=== PATIENT | male | born 1955 | race Caucasian/White ===

== ENCOUNTER 2020-02-18 22:56 | Inpatient (IN) ==
[2020-02-18] MEDS ORDERED: ONDANSETRON INJ 2 MG/ML 2 ML VIAL ONE (23:09)
[2020-02-18] MEDS ORDERED: SODIUM CHLORIDE 0.9% 1000ML 1,000 ML IV SCH (23:45)
[2020-02-18] MEDS ORDERED: ONDANSETRON INJ 2 MG/ML 2 ML VIAL IV STA (23:48)
[2020-02-18] MEDS ORDERED: SODIUM CHLORIDE 0.9% 1000ML 250 ML IV ONE (23:54)
[2020-02-19 00:34] LABS: Hematocrit (blood only) 38.3 % (42-52); Hemoglobin 12.8 g/dL (14.0-18.0); Immature Granulocytes # (auto) 0.03 K/uL (0.00-0.02); Immature Granulocytes % (auto) 0.3 %; Lymphocytes # (auto) 0.67 K/uL (1.2-3.4); Lymphocytes % (auto) 7.4 %; Mean Corpuscular Hemoglobin 28.3 pg (25-34); Mean Corpuscular Hgb Conc 33.4 g/dL (32-36); Mean Corpuscular Volume 84.5 fL (80-100); Mean Platelet Volume 8.7 fL (7.4-10.4); Monocytes # (auto) 0.14 K/uL (0.11-0.59); Monocytes % (auto) 1.5 %; Neutrophils # (auto) 8.22 K/uL (1.4-6.5); Neutrophils % (auto) 90.8 %; Platelet Count 209 K/uL (130-400); RDW Standard Deviation 42.9 fL (36.4-46.3); Red Blood Count 4.53 M/uL (4.7-6.1); White Blood Count 9.06 K/uL (4.8-10.8)
[2020-02-19 00:54] LABS: Alanine Aminotransferase 30 U/L (12-78); Albumin Globulin Ratio 0.9 (0.9-2); Albumin Level 3.1 gm/dl (3.4-5.0); Alkaline Phosphatase 108 U/L (45-117); Aspartate Aminotransferase 23 U/L (15-37); BUN Creatinine Ratio 17.2 (10-20); Bilirubin,Total 0.4 mg/dl (0.2-1); Blood Urea Nitrogen 28 mg/dl (7-18); Calcium 8.4 mg/dl (8.5-10.1); Carbon Dioxide 25 mmol/L (21-32); Chloride 111 mmol/L (98-107); Est GFR (African American) 50.8; Est GFR (Non-African American) 43.9; Globulin 3.3 gm/dl (2.5-4.0); Glucose 156 mg/dl (70-99); Lipase 98 U/L (73-393); Potassium 4.9 mmol/L (3.5-5.1); Sodium 142 mmol/L (136-145); Total Protein 6.4 gm/dl (6.4-8.2)
--- NOTE | 2020-02-19 02:11 | Emergency Department Note ---
History of Present Illness General Chief complaint: Abdominal Pain Stated complaint: abdominal pain Time Seen by Provider: 02/18/20 23:03 Source: patient Mode of arrival: EMS Limitations: no limitations History of Present Illness Provider complaint: Abdominal pain, nausea Maximum Pain Intensity: 5 This patient is a 64-year-old male who presents emergency department with complaints of diffuse abdominal pain, nausea. Patient states he is traveling from [place] where he was evaluated today with a CT angiogram and bronchoscopy. He states he is a lung transplant patient from 1-1/2 years ago. Patient states recently his spirometry has been going down. They requested to see him in clinic. Patient had his friend drive him back [facility]. Patient was driving himself from [place] back to [place]. Patient developed a sudden and severe diffuse abdominal pain and nausea. He pulled over at a truck stop and attempted to vomit but did not. He stated he just did not feel right and called the ambulance from there. He states after his lung transplant he was in the ICU for 6 weeks. He did have a "severe ileus" at that time. This does feel similar. Patient denies any recent fevers, chills, chest pain. He states he was tested 2 days ago at the [facility] for COVID and was negative. Home Medications Home Medications Medication Instructions Recorded Confirmed Type atorvastatin 10 mg PO HS 02/18/20 02/18/20 History levothyroxine 125 mcg PO QAM 02/18/20 02/18/20 History magnesium oxide 400 mg PO BID 02/18/20 02/18/20 History multivitamin [[place]] 1 tab PO DAILY 02/18/20 02/18/20 History mycophenolate mofetil 250 mg PO BID 02/18/20 02/19/20 History pantoprazole 40 mg PO DAILY 02/18/20 02/19/20 History prednisone 5 mg PO QAM 02/18/20 02/18/20 History tacrolimus 0.5 mg PO AMHS 02/18/20 02/19/20 History valganciclovir 450 mg PO QAM 02/18/20 02/18/20 History Lactobacillus acidophilus 1 tab PO BID 02/19/20 02/19/20 History calcium carbonate 500 mg PO BID 02/19/20 02/19/20 History folic acid 1 mg PO DAILY 02/19/20 02/19/20 History sulfamethoxazole-trimethoprim 1 tab PO 3XWK 02/19/20 02/19/20 History Allergies Allergy/AdvReac Type Severity Reaction Status Date / Time gluten Allergy Severe Gastrointestinal Verified 02/19/20 00:04 Upset heparin Allergy Severe Tachycardia Verified 02/19/20 00:04 Past Med/Surg History Medical History (Updated 02/19/20 @ 06:51 by Citlaly Barba MD) Dyslipidemia Hypothyroidism Lung transplant status (Acute) Surgical History (Updated 02/19/20 @ 02:16 by Citlaly Barba MD) Status post cholecystectomy Social History Preferred Language: Irish Beliefs That Will Affect Care: None Current Living Situation: Spouse and Family Current Living Situation Comment: and 10 year old daughter Other Information That Helps Us Care for You: No Feels Safe at Home: Yes Safety Concerns: Feels Safe At This Time Smoking Status: Never smoker Do You Dip or Chew Tobacco: No ; Second Hand Exposure: No ; Tobacco Cessation Education Requested by Patient: No Hx Alcohol Use: No Hx Substance Use: No Review of Systems See HPI for pertinent positives & negatives. and A total of 10 systems reviewed and were otherwise negative Physical Exam Vital Signs Vital Signs - 24 hr 02/18/20 23:04 02/18/20 23:26 02/19/20 00:29 Temperature 36.4 C L Temperature Source Oral Pulse Rate 111 H Pulse Rate [Apical] Respiratory Rate 24 Respiratory Effort / Characteristics Labored Respiratory Depth Shallow Shallow Blood Pressure 106/70 Blood Pressure [Right Arm] Blood Pressure Mean 82 Blood Pressure Mean [Right Arm] Pulse Oximetry 94 Oxygen Delivery Method Room Air Room Air Sepsis Recent Fever Within 48 Hours No Sepsis New/Unexplained Change in Mental Status No Sepsis Action Taken by Nursing Physician Notified 02/19/20 01:30 Temperature Temperature Source Pulse Rate Pulse Rate [Apical] 93 H Respiratory Rate 20 Respiratory Effort / Characteristics Respiratory Depth Blood Pressure Blood Pressure [Right Arm] 97/65 L Blood Pressure Mean Blood Pressure Mean [Right Arm] 75 Pulse Oximetry 93 Oxygen Delivery Method Room Air Sepsis Recent Fever Within 48 Hours Sepsis New/Unexplained Change in Mental Status Sepsis Action Taken by Nursing Vital signs reviewed. General: Generally well-appearing 64-year-old male, in no significant distress. HEENT: No scleral icterus, PERRLA, neck supple. Atraumatic. Cardiovascular: Regular rate and rhythm, no extra sounds. Pulmonary: Clear to auscultation bilaterally, normal work of breathing. Abdomen: Soft, mild diffuse abdominal tenderness, distended and positive tympany to percussion, hyperactive positive bowel sounds. Musculoskeletal: Atraumatic, no peripheral edema. Neurologic: Patient awake alert and oriented x 3 Skin: Warm, dry, no rash Course Administered Medications Dextrose/Sodium Chloride (D5w And Nss) 1,000 mls @ 125 mls/hr IV .Q8H KOFFI Stop: 03/20/20 03:12 Last Admin: 02/19/20 03:46 Dose: 125 mls/hr Documented by: [id number] Discontinued Medications Sodium Chloride (Nss 1000ml) 1,000 mls @ 100 mls/hr IV .Q10H KOFFI Stop: 02/19/20 09:44 Last Admin: 02/19/20 00:33 Dose: 100 mls/hr Documented by: [id number] Sodium Chloride (Nss 1000ml) 250 mls @ 999 mls/hr IV .Q16M ONE Stop: 02/19/20 00:09 Last Infusion: 02/19/20 01:03 Dose: 0 mls/hr Documented by: [id number] Admin: 02/19/20 00:33 Dose: 999 mls/hr Documented by: [id number] Ondansetron HCl (Zofran) Confirm Administered Dose 4 mg .ROUTE .STK-MED ONE Stop: 02/18/20 23:10 Last Admin: 02/18/20 23:00 Dose: 4 mg Documented by: [id number] Ondansetron HCl (Zofran) 4 mg IV NOW STA Stop: 02/18/20 23:49 Last Admin: 02/19/20 00:29 Dose: Not Given Documented by: [id number] Medical Decision Making Differential Diagnosis Differential diagnosis: Etiologies such as biliary colic, cholecystitis, hepatitis, pancreatitis, cardiac disease, pancreatitis, gastritis, peptic ulcer disease, appendicitis, cystitis, diverticulitis, mesenteric ischemia, inflammatory bowel disease, ileus, bowel obstruction, testicular torsion, aortic pathology, shingles, as well as others were considered. Medical Records Attestation: I reviewed the patient's medical records. Home Medications Current Medication List: was personally reviewed by me Laboratory Data Attestation: I reviewed the patient's lab results. Result diagrams: 02/19/20 00:18 02/19/20 00:18 Lab Results 02/19/20 02/19/20 02/19/20 Range/Units 00:18 00:18 02:05 WBC 9.06 (4.8-10.8) K/uL RBC 4.53 L (4.7-6.1) M/uL Hgb 12.8 L (14.0-18.0) g/dL Hct 38.3 L (42-52) % MCV 84.5 (80-100) fL MCH 28.3 (25-34) pg MCHC 33.4 (32-36) g/dL RDW Std Deviation 42.9 (36.4-46.3) fL RDW Coeff of Astrid 14.0 (11.5-14.5) % Plt Count 209 (130-400) K/uL MPV 8.7 (7.4-10.4) fL Immature Gran % (Auto) 0.3 % Neut % (Auto) 90.8 % Lymph % (Auto) 7.4 % [place] % (Auto) 1.5 % Eos % (Auto) 0.0 % Baso % (Auto) 0.0 % Neut # (Auto) 8.22 H (1.4-6.5) K/uL Lymph # (Auto) 0.67 L (1.2-3.4) K/uL [place] # (Auto) 0.14 (0.11-0.59) K/uL Eos # (Auto) 0.00 (0-0.5) K/uL Baso # (Auto) 0.00 (0-0.2) K/uL Immature Gran # (Auto) 0.03 H (0.00-0.02) K/uL Sodium 142 (136-145) mmol/L Potassium 4.9 (3.5-5.1) mmol/L Chloride 111 H (98-107) mmol/L Carbon Dioxide 25 (21-32) mmol/L Anion Gap 6.0 (3-11) BUN 28 H (7-18) mg/dl Creatinine 1.63 H (0.6-1.4) mg/dl Est Cr Clr Drug Dosing Not Reportable Est GFR ( Amer) 50.8 Est GFR (Non-Af Amer) 43.9 BUN/Creatinine Ratio 17.2 (10-20) Glucose 156 H (70-99) mg/dl Calcium 8.4 L (8.5-10.1) mg/dl Total Bilirubin 0.4 (0.2-1) mg/dl AST 23 (15-37) U/L ALT 30 (12-78) U/L Alkaline Phosphatase 108 (45-117) U/L Total Protein 6.4 (6.4-8.2) gm/dl Albumin 3.1 L (3.4-5.0) gm/dl Globulin 3.3 (2.5-4.0) gm/dl Albumin/Globulin Ratio 0.9 (0.9-2) Lipase 98 (73-393) U/L Urine Color Yellow Urine Appearance Clear (Clear) Urine pH 5.0 (4.5-7.5) Ur Specific [place] 1.025 (1.000-1.030) Urine Protein Negative (Negative) Urine Glucose (UA) Negative (Negative) Urine Ketones Negative (Negative) Urine Blood Negative (Negative) Urine Nitrite Negative (Negative) Urine Bilirubin Negative (Negative) Urine Urobilinogen Negative (Negative) Ur Leukocyte Esterase Negative (Negative) Imaging Data Radiologist's Impression: CT abdomen and pelvis without contrast: There is scattered linear atelectasis and scarring in the lung bases. The liver is unremarkable. The gallbladder has been removed. No biliary duct dilatation is seen. The pancreas, spleen, adrenal glands and kidneys are within normal limits. There is residual contrast within the renal collecting system and urinary bladder, nondilated. Correlate with recent IV contrast administration. The appendix is normal there is a moderate amount of stool throughout the right colon which is nondilated measuring up to 5 cm. There are multiple scattered gas fluid levels in nondilated fluid filled small bowel in the midabdomen consistent with ileus or gastroenteritis. No acute focal inflammatory changes are seen. Skeletal structures show mild degenerative changes in the spine. No fracture or bone lesion is seen. Incidental note is made of a fat-containing left inguinal hernia measuring 2.3 cm in diameter. Radiologist: Aashish Chacko MD ECG Data Attestation: I personally reviewed and interpreted this ECG as follows: Indication: + abdominal pain Rate (beats per minute): 99 Rhythm: + normal sinus ECG Intervals/blocks: + Normal QRS ECG [place]: + Normal ECG ST segments: + Nonspecific ST abnormalities ECG Findings: no PACs and no PVCs Blood Pressure Blood Pressure Findings: Normal blood pressure Blood Pressure Disposition: did not require urgent referral MDM Narrative This patient was evaluated and appeared to be in no significant distress. IV access was obtained and laboratory work was drawn. An order for cardiac monitoring was placed and the patient was found to be in a sinus tachycardia at 111 bpm. Patient was hydrated with normal saline solution, given IV Zofran. CT imaging of the abdomen pelvis was performed and reveals evidence of an adynamic ileus. Patient's laboratory work is fairly reassuring with a white blood cell count of 9.06. Patient's creatinine is 1.63 however he did receive a dose of IV contrast earlier today. Patient is afebrile and stable from the pain and nausea standpoint. Given his multiple medical problems and immunocompromise state, the hospitalist service has been contacted for evaluation and further management. Patient is aware of the plan and agrees. Impression & Plan Lung transplant status, Adynamic ileus Discharge Plan Visit Data *Final* Discharge Date/Time: 02/19/20 02:51 Chief Complaint: Abdominal Pain Stated Complaint: abdominal pain ED Provider: Citlaly Barba Discharge Problem: Lung transplant status, Adynamic ileus Patient Disposition: Admitted As Inpatient Discharge Instructions Interventions: ED Discharge Assessment Last Done: 02/19/20 02:51
[2020-02-19 02:26] LABS: Appearance Urine Clear (Clear); Bilirubin Urine Negative (Negative); Blood Urine Negative (Negative); Color Urine Yellow; Glucose Urine UA Negative (Negative); Ketones Urine Negative (Negative); Leukocyte Esterase Urine Negative (Negative); Nitrite Urine Negative (Negative); Protein Urine Negative (Negative); Specific Gravity Urine 1.025 (1.000-1.030); Urobilinogen Urine Negative (Negative)
[2020-02-19] MEDS ORDERED: ONDANSETRON INJ 2 MG/ML 2 ML VIAL IV PRN (03:13)
[2020-02-19] MEDS ORDERED: MoRPHine SULFATE 2 MG/ML CARP IV PRN (03:13)
[2020-02-19] MEDS ORDERED: ACETAMINOPHEN 325 MG TAB PO PRN (03:13)
[2020-02-19] MEDS: D5W AND NSS 1,000 ML IV SCH ×3 (03:46→19:26)
[2020-02-19] MEDS ORDERED: Nursing to Pharmacy Communication SCH (04:15)
--- NOTE | 2020-02-19 04:31 | History and Physical Report ---
DATE OF ADMISSION: 02/19/2020 CHIEF COMPLAINT: Abdominal pain. HISTORY OF PRESENT ILLNESS: This is a 64-year-old male with past medical history significant for interstitial lung disease, status post bilateral lung transplant one and a half years ago at the [facility], history of chronic kidney disease stage III with creatinine mostly around 1.7 as per patient, history of hyperlipidemia, hypothyroidism. He is from [facility]. He went to the [facility] for his followup appointment, says he did not go there since COVID shutdown .Followup PFTs, his PFTs are trending down and on CAT scan which showed blood supply to his left lung was 30%, 65% to the right lung, and he was advised to stay overnight and he got another CAT scan with contrast to look at his kidneys and also to look at his blood supply to the lungs.. The results of second ct scan are not back. He also had bronchoscopy . At this time, because of COVID, full anesthesia was given for his bronchoscopy, a lung biopsy was done and was discharged at 5:30 as per patient. He was not feeling well, but he tried to drive back to [place]. After [address], he was feeling nauseous and he got significant abdominal pain. He stopped in the rest area. He had few dry belching. Not feeling good, so he called EMS and was brought in here. Here his labs are all okay. His creatinine is 1.6, afebrile, hemodynamically stable. His CT scan preliminary report shows ileus. The patient says when he had the lung transplant, he was in the ICU and he had significant ileus at that time. Currently he is feeling better. He is passing gas. Abdominal pain is improving. Before the procedure at the [facility] yesterday, COVID test was done and it was negative. Denies any cough. Currently has some headache that is getting better. No blurred vision, no earache, no runny nose, no sore throat, no difficulty swallowing, no chest pain. He gets short of breath on exertion, but usually his oxygen sats are good. Normal bladder movements. No swelling in the legs, no rash. ALLERGIES: GLUTEN, HEPARIN. PAST MEDICAL HISTORY: As mentioned above. PAST SURGICAL HISTORY: Bilateral lung transplant, status post cholecystectomy. MEDICATIONS: The patient is on atorvastatin 10 mg p.o. at bedtime, calcium carbonate 500 mg p.o. b.i.d., folic acid 1 mg p.o. daily, lactobacillus 1 tablet p.o. b.i.d., levothyroxine 125 mcg p.o. daily, magnesium oxide 400 mg p.o. b.i.d., multivitamin 1 tablet daily, mycophenolate mofetil 250 mg p.o. b.i.d., Protonix 40 mg p.o. daily, prednisone 5 mg p.o. a.m., Bactrim 1 tablet 3 times a week, tacrolimus 0.5 mg p.o. a.m. and bedtime, valganciclovir 450 mg p.o. a.m. FAMILY HISTORY: Significant for father had heart disease; mother had cancer. SOCIAL HISTORY: Denies any smoking, no alcohol. REVIEW OF SYSTEMS: As per HPI. Rest of the review of systems negative. PHYSICAL EXAMINATION: GENERAL: The patient is of moderate build, not in acute distress. VITAL SIGNS: Temperature 36.4, pulse 93, respiratory rate 20, blood pressure 97/65, oxygen 93% on room air. HEENT: No pallor, no icterus. Pupils equal, round, and reactive to light. NECK: No JVD. No neck masses. CARDIOVASCULAR: S1, S2 heard, regular rate and rhythm, no murmur, no gallop. RESPIRATORY SYSTEM: Normal AP diameter. No accessory muscle use. No wheezing, no crackles. ABDOMEN: Soft, bowel sounds present. No distention, no guarding, no rigidity. CENTRAL NERVOUS SYSTEM: Cranial nerves II-XII grossly intact. Nonfocal. EXTREMITIES: No edema, no erythema. LABORATORY DATA: WBC 9.06, hemoglobin 12.8, hematocrit 38.3, platelets 209. Sodium 142, potassium 4.9, chloride 111, CO2 of 25, BUN 28, creatinine 1.63, serum glucose 156, calcium 8.4, total bilirubin 0.4, AST 23, ALT 30, alkaline phosphatase 108, lipase 98. Urinalysis negative. IMAGING DATA: CT of abdomen and pelvis, preliminary report shows ileus. EKG: Normal sinus rhythm with rate of 99, nonspecific ST abnormalities seen. ASSESSMENT AND PLAN: This is a 64-year-old male who presents with abdominal pain and nausea and CAT scan is showing ileus. 1. Ileus, mostly post procedure. He had a bronchoscopy yesterday morning . He had a similar episode after the lung transplant surgery. Currently he is improving. He is passing gas and could hear bowel sounds. We will keep him n.p.o. for now. IV fluids, IV antiemetics, IV pain meds p.r.n. KUB in the a.m. Consult surgery in the a.m. for further recommendations. 2. History of interstitial lung disease, status post bilateral lung transplant. Follow up with [facility]. Continue his tacrolimus, prednisone, and mycophenolate. 3. Hypothyroidism, we will place on IV Synthroid. 4. Hyperlipidemia. Hold statin for now. 5. Deep vein thrombosis prophylaxis, sequential compression devices. DISPOSITION: Admit to medical floor. Expect to discharge home and follow with family doctor. Level 1 full code. MTDD
--- NOTE | 2020-02-19 07:27 | CT Scan Report ---
CT SCAN OF THE ABDOMEN AND PELVIS WITHOUT CONTRAST CLINICAL HISTORY: Abdominal pain. Small bowel obstruction. History of bilateral lung transplant. COMPARISON STUDY: No previous studies for comparison. TECHNIQUE: CT scan of the abdomen and pelvis was performed from the lung bases to the proximal femurs . Images are reviewed in the axial, sagittal, and coronal planes. IV contrast was not administered fo r this examination. A dose lowering technique was utilized adhering to the principles of ALARA. CT DOSE: 744.91 mGy.cm FINDINGS: Lower chest: There are bibasilar lower lobe parenchymal lung opacities, likely atelectatic although a n infectious/inflammatory processes could appear similar. There is a trace left pleural effusion. Liver: The unenhanced liver is normal in size, contour, and attenuation. There is no intrahepatic lana iary ductal dilatation. Gallbladder: Surgically absent Spleen: Normal in size and attenuation. Pancreas: Unremarkable. Adrenal glands: Unremarkable. Kidneys: There is faint contrast enhancement, likely secondary to prior contrast administration. No f ocal masses are visualized Bowel: There are no transition zones indicate bowel obstruction. There is no evidence of acute divert iculitis. There is no evidence of acute appendicitis. There is scattered small bowel air-fluid levels . This is a nonspecific finding which could indicate an ileus or enteritis. Peritoneum: There is no intraperitoneal free air or abdominal ascites. Is a fat-containing left ingui nal hernia Vasculature: The abdominal aorta is normal in course and caliber. Adenopathy: None. Pelvic viscera: The bladder, and pelvic viscera are unremarkable. Skeletal structures: No destructive osseous lesions are seen. IMPRESSION: 1. Lower lumbar pulmonary atelectasis/scarring 2. No evidence of bowel obstruction. No evidence of free air 3. Scattered small bowel air-fluid levels. This a nonspecific finding which could indicate an ileus o r enteritis. 4. Fat-containing left inguinal hernia 5. No evidence of acute diverticulitis. No evidence of acute appendicitis. ACT 112: Negative or not required by law. Electronically signed by: Jose Hernandez M.D. 02/19/2020 7:25 AM
[2020-02-19] MEDS ORDERED: SULFAMETHOXAZOLE/TRIMETHOPRIM DS 800/160MG TAB PO SCH (08:00)
[2020-02-19] MEDS ORDERED: predniSONE 5 MG TAB PO SCH ×2 (08:00→09:00)
--- NOTE | 2020-02-19 08:23 | XRay Report ---
XR KUB/Abdomen 1 view CLINICAL HISTORY: ileus COMPARISON STUDY: CT scan dated 02/19/2020 FINDINGS: There is a nonspecific bowel gas pattern with minimally dilated gas-filled small bowel loop s. There is gas and stool present within the colon. There are no calcifications suspicious for urinar y tract calculi. There are surgical clips within the right upper quadrant. IMPRESSION: Nonspecific bowel gas pattern with minimally dilated small bowel loops measuring up to 3 5 mm in diameter ACT 112: Negative or not required by law. Electronically signed by: Jose Hernandez M.D. 02/19/2020 8:22 AM
[2020-02-19] MEDS: TACROLIMUS 0.5 MG CAP PO SCH ×2 (08:26→19:27)
[2020-02-19] MEDS: PANTOprazole 40 MG TAB PO SCH (08:26)
[2020-02-19] MEDS: MYCOPHENOLATE MOFETIL 250 MG CAP PO SCH ×2 (08:26→19:27)
[2020-02-19] MEDS ORDERED: TACROLIMUS 0.5 MG CAP PO SCH (09:00)
[2020-02-19] MEDS ORDERED: MYCOPHENOLATE MOFETIL 250 MG CAP PO SCH (09:00)
[2020-02-19] MEDS ORDERED: PANTOprazole 40 MG TAB PO SCH (09:00)
[2020-02-19] MEDS: LEVOTHYROXINE SODIUM 62.5 MCG in SYRINGE 0 ML IV SCH (09:14)
--- NOTE | 2020-02-19 10:43 | Hospitalist Progress Note ---
Date of Service February 19, 2020 Assessment & Plan Admission and Anticipated Discharge Date Admission Date: February 19, 2020 Subjective Patient admitted overnight, currently he is ambulating in the hallway, says that he feels much better. He is passing gas however did not have any bowel movement yet. Abdominal pain is much improved. He denies any nausea or vomiting currently, says that he had some yesterday. Patient is alert and oriented, answers questions appropriately. Moves extremities spontaneously without difficulty. He has positive bowel sounds. Lungs are mostly clear to auscultation bilaterally, without any wheezing or rhonchi noted. Heart sounds regular. Abdomen is soft, mostly nontender to palpation. KUB ordered for this morning. Surgery consulted by chai, evaluation pending. Contacted by Sarah, lung bariatric program coordinator at [facility], she can be reached at [phone] option 4, option 2. Per nurse, who talked to Sarah, left message that if patient would need any surgery, he would need to be transferred to [facility]. Results & Data Results & Data ([facility]) Vital Signs (Past 12 Hours) Vital Signs Temp Pulse Pulse Pulse Resp BP BP 02/19/20 03:28 36.5 C 98 H 18 123/55 L 02/19/20 02:47 94 H 24 115/65 02/19/20 01:30 93 H 20 97/65 L 02/18/20 23:04 36.4 C L 111 H 24 106/70 Pulse Ox 02/19/20 03:28 96 02/19/20 02:47 93 02/19/20 01:30 93 02/18/20 23:04 94
--- NOTE | 2020-02-19 16:01 | Surgery Consultation ---
Date of Consultation February 19, 2020 Assessment & Plan (1) Adynamic ileus: This is a 64y M with a PMH of bilateral lung transplant at [facility] in 2018, hypothyroidism, and cholecystectomy in 2019 who presented to the [facility] ED on 02/18 with complaints of abdominal pain. Workup revealed non specific small bowel dilation consistent with ileus vs enteritis. Patient reports this episode feels similar to when he developed an ileus s/p gallbladder surgery last year. Today patient reports "feeling 100% better." He is passing flatus and had a small BM today. He has been up ambulating without issues. Patient is soft and non tender to his abdomen. We have no plans for surgical intervention at this time. Patient seems clinically improved, okay from our standpoint to start clears and advance diet as tolerates. History of Present Illness Attending Physician: Ozzie Malloy MD History of Present Illness This is a 64y M with a PMH of bilateral lung transplant at [facility] in 2018, hypothyroidism, and cholecystectomy in 2019 who presents to the [facility] ED on 02/18 with complaints of abdominal pain. Of note the patient was at the [facility] yesterday undergoing routine testing regarding his lung txp, in addition to having a bronchoscopy. Patient reports he has had multiple bronchoscopy's before, but due to Covid-19 this was the first he had under general anesthesia. Patient was doing well until about 5:30pm when he was on his drive home to [place]. His friend dropped him off in OR and thought the he did not look well, but pt insisted on trying to drive home. Once patient got in his car he noted that he had developed worsening abdominal pain and nausea. He ultimately called the ambulance to take him to the hospital. In the ED patient underwent a CT a/p that revealed scattered small bowel with air fluid levels that could be consistent with an ileus vs enteritis. Patient states he has had his gallbladder out last year and developed an ileus and that this episode felt similar. He rated his pain an 8/10, associated with nausea & bloating. He denies fevers, chills, chest pain, or shortness of breath. Surgery was consulted for further e valuation. Allergies Allergy/AdvReac Type Severity Reaction Status Date / Time gluten Allergy Severe Gastrointestinal Verified 02/19/20 00:04 Upset heparin Allergy Severe Tachycardia Verified 02/19/20 00:04 Home Medications Home Medications Medication Instructions Recorded Confirmed Type atorvastatin 10 mg PO HS 02/18/20 02/18/20 History levothyroxine 125 mcg PO QAM 02/18/20 02/18/20 History magnesium oxide 400 mg PO BID 02/18/20 02/18/20 History multivitamin [[place]] 1 tab PO DAILY 02/18/20 02/18/20 History mycophenolate mofetil 250 mg PO BID 02/18/20 02/19/20 History pantoprazole 40 mg PO DAILY 02/18/20 02/19/20 History prednisone 5 mg PO QAM 02/18/20 02/18/20 History tacrolimus 0.5 mg PO AMHS 02/18/20 02/19/20 History valganciclovir 450 mg PO QAM 02/18/20 02/18/20 History Lactobacillus acidophilus 1 tab PO BID 02/19/20 02/19/20 History calcium carbonate 500 mg PO BID 02/19/20 02/19/20 History folic acid 1 mg PO DAILY 02/19/20 02/19/20 History sulfamethoxazole-trimethoprim 1 tab PO 3XWK 02/19/20 02/19/20 History Patient History Medical History Dyslipidemia Hypothyroidism Lung transplant status (Acute) Surgical History Status post cholecystectomy Social History Preferred Language: Irish Communication Ability: Effective Beliefs That Will Affect Care: None Current Living Situation: Spouse and Family Current Living Situation Comment: and 10 year old daughter Other Information That Helps Us Care for You: No Feels Safe at Home: Yes Safety Concerns: Feels Safe At This Time Smoking Status: Never smoker Do You Dip or Chew Tobacco: No ; Second Hand Exposure: No ; Tobacco Cessation Education Requested by Patient: No Hx Alcohol Use: No Hx Substance Use: No Review of Systems Constitutional: no fever and no chills Respiratory: no dyspnea Cardiovascular: no chest pain Gastrointestinal: + abdominal pain (lower abdominal pain yesterday) and + nausea; no vomiting Physical Exam Physical Exam: awake/alert Respiratory: normal respiratory effort Gastrointestinal (Abdomen): Inspection/Auscultation: abdomen not distended Percussion/Palpation: abdomen soft; abdomen nontender Results & Data Diagnostic Findings CT SCAN OF THE ABDOMEN AND PELVIS WITHOUT CONTRAST CLINICAL HISTORY: Abdominal pain. Small bowel obstruction. History of bilateral lung transplant. COMPARISON STUDY: No previous studies for comparison. TECHNIQUE: CT scan of the abdomen and pelvis was performed from the lung bases to the proximal femurs. Images are reviewed in the axial, sagittal, and coronal planes. IV contrast was not administered for this examination. A dose lowering technique was utilized adhering to the principles of ALARA. CT DOSE: 744.91 mGy.cm FINDINGS: Lower chest: There are bibasilar lower lobe parenchymal lung opacities, likely atelectatic although an infectious/inflammatory processes could appear similar. There is a trace left pleural effusion. Liver: The unenhanced liver is normal in size, contour, and attenuation. There is no intrahepatic biliary ductal dilatation. Gallbladder: Surgically absent Spleen: Normal in size and attenuation. Pancreas: Unremarkable. Adrenal glands: Unremarkable. Kidneys: There is faint contrast enhancement, likely secondary to prior contrast administration. No focal masses are visualized Bowel: There are no transition zones indicate bowel obstruction. There is no evidence of acute diverticulitis. There is no evidence of acute appendicitis. There is scattered small bowel air-fluid levels. This is a nonspecific finding which could indicate an ileus or enteritis. Peritoneum: There is no intraperitoneal free air or abdominal ascites. Is a fat- containing left inguinal hernia Vasculature: The abdominal aorta is normal in course and caliber. Adenopathy: None. Pelvic viscera: The bladder, and pelvic viscera are unremarkable. Skeletal structures: No destructive osseous lesions are seen. IMPRESSION: 1. Lower lumbar pulmonary atelectasis/scarring 2. No evidence of bowel obstruction. No evidence of free air 3. Scattered small bowel air-fluid levels. This a nonspecific finding which could indicate an ileus or enteritis. 4. Fat-containing left inguinal hernia 5. No evidence of acute diverticulitis. No evidence of acute appendicitis. ACT 112: Negative or not required by law. Electronically signed by: Jose Hernandez M.D. 02/19/2020 7:25 AM XR KUB/Abdomen 1 view CLINICAL HISTORY: ileus COMPARISON STUDY: CT scan dated 02/19/2020 FINDINGS: There is a nonspecific bowel gas pattern with minimally dilated gas- filled small bowel loops. There is gas and stool present within the colon. There are no calcifications suspicious for urinary tract calculi. There are surgical clips within the right upper quadrant. IMPRESSION: Nonspecific bowel gas pattern with minimally dilated small bowel loops measuring up to 35 mm in diameter ACT 112: Negative or not required by law. Electronically signed by: Jose Hernandez M.D. 02/19/2020 8:22 AM PG Care Time/CCT Total # of Minutes Spent Total Time Spent with Patient: Total time spent is greater than 50% in coordination of care (as documented) at patient's floor/unit and/or counseling patient: Coding Level of Care Code 43223 Inpt Consult Level 3 Diagnoses Adynamic ileus K56.0
--- NOTE | 2020-02-19 19:15 | Electrocardiogram Report ---
Test Reason : Blood Pressure : / mmHG Vent. Rate : 099 BPM Atrial Rate : 099 BPM P-R Int : 148 ms QRS Dur : 084 ms QT Int : 354 ms P-R-T Axes : 033 027 053 degrees QTc Int : 454 ms Normal sinus rhythm Nonspecific ST abnormality Abnormal ECG No previous ECGs available Confirmed by Wilmer Rivas ([id number]) on 02/19/2020 7:15:17 PM Referred By: REFERRED SELF Confirmed By:Harinder Rivas
--- NOTE | 2020-02-19 20:32 | Communication Note ---
Date of Service: February 19, 2020 Made aware by [facility] immigration coordinator of lung/transbronchial biopsy findings. Mild acute cellular rejection, grade A2 B0. research coordinator recommends Solu-Medrol 7.5 mg/kg for 3 days (approximately 650 mg/daily with patient's current weight). Hold home prednisone while on Solu-Medrol. research coordinator requesting communication with AM provider regarding discharge planning for instructions for home steroid regimen dosing. (Miss Laura Cohen RN, contact #[phone] option 4, option 2)
[2020-02-19] MEDS ORDERED: SODIUM CHLORIDE 0.45 % 1,000 ML IV ONE (20:33)
[2020-02-19] MEDS ORDERED: GLUCOSE 40% GEL 15 GM TUBE PO PRN (20:35)
[2020-02-19] MEDS ORDERED: CARBOHYDRATES FOR HYPOGLYCEMIA PO PRN (20:35)
[2020-02-19] MEDS ORDERED: GLUCOSE 10 TABS/TUBE PO PRN (20:35)
[2020-02-19] MEDS ORDERED: DEXTROSE 50% 50 ML SYRINGE IV PRN (20:35)
[2020-02-19] MEDS ORDERED: GLUCAGON FOR INJ 1 MG VIAL SQ PRN (20:35)
[2020-02-19] MEDS ORDERED: METHYLPREDNISOLONE IV SCH (21:00)
[2020-02-19] MEDS ORDERED: INSULIN GLARGINE SOLOSTAR 100 UNITS/ML 3 ML PEN SC SCH (21:00)
[2020-02-19] MEDS ORDERED: DEXTROSE 5% IV SCH (21:00)
[2020-02-19] MEDS: INSULIN ASPART 100 UNITS/ML 3 ML PEN SC SCH (23:53)
[2020-02-20 07:41] VITALS: BP 117/75; PULSE 88; TEMP 97.9; O2SAT 94
--- NOTE | 2020-02-20 08:04 | Surgery Progress Note ---
Date of Service February 20, 2020 Assessment & Plan (1) Adynamic ileus: Patient doing well from an abdominal standpoint Denies further abdominal pain or nausea Abdominal exam benign and he is passing flatus and having some BMs Tolerated clear liquids yesterday Okay to advance diet as tolerates from our standpoint Dispo pending medicine clearance Subjective Patient tolerated clear liquids yesterday. Passing gas, had a small BM this AM. No nausea/vomting or abdominal pain. Physical Exam Physical Exam: awake/alert Gastrointestinal (Abdomen): Inspection/Auscultation: abdomen not distended Percussion/Palpation: abdomen soft; abdomen nontender Results & Data Vital Signs (Past 12 Hours) Vital Signs Temp Pulse Resp BP Pulse Ox 02/20/20 07:40 36.6 C 88 16 117/75 94 02/19/20 23:51 36.5 C 87 14 112/74 97 PG Care Time/CCT Total # of Minutes Spent Total Time Spent with Patient: Total time spent is greater than 50% in coordination of care (as documented) at patient's floor/unit and/or counseling patient: Coding Level of Care Code 96873 Subseq Hosp Care Lvl 2 Diagnoses Adynamic ileus K56.0
[2020-02-20] MEDS: MYCOPHENOLATE MOFETIL 250 MG CAP PO SCH (08:17)
[2020-02-20] MEDS: PANTOprazole 40 MG TAB PO SCH (08:18)
[2020-02-20] MEDS: LEVOTHYROXINE SODIUM 62.5 MCG in SYRINGE 0 ML IV SCH (08:20)
[2020-02-20] MEDS: TACROLIMUS 0.5 MG CAP PO SCH (08:20)
[2020-02-20] MEDS: INSULIN ASPART 100 UNITS/ML 3 ML PEN SC SCH ×2 (08:21→13:43)
--- NOTE | 2020-02-20 09:40 | Hospitalist Progress Note ---
Date of Service February 20, 2020 Assessment & Plan (1) Adynamic ileus: This is a 64-year-old male who presents with abdominal pain and nausea and CAT scan is showing ileus. 1. Ileus, mostly post procedure. He had a bronchoscopy at [facility], 2 days ago. He had a similar episode after the lung transplant surgery. Currently he is improved. He is passing gas and having bowel movements. He is tolerating diet. Initially kept him n.p.o. IV fluids, IV antiemetics, IV pain meds Consulted surgery for further recommendations. No issues, patient is tolerating diet, okay to advance per surgery. 2. History of interstitial lung disease, status post bilateral lung transplant. Follow up with [facility]. Continue his tacrolimus, prednisone, and mycophenolate. Discussed in detail with nurse lung systems coordinator, biopsy came back and showed mild rejection, (please see Dr. Fonseca's note for details. ) Per their recommendation, patient received IV Solu-Medrol last night and today (02/19/20). They recommend that he receives IV Solu-Medrol also tomorrow and then they plan steroid taper. Mild hypomagnesemia. Likely due to n.p.o. status. Will replace today. If any further issues, patient should have his magnesium level checked with his primary care doctor. Creatinine mildly elevated, not sure about his baseline creatinine. Patient should follow-up with primary care doctor. Hypothyroidism, we will place on IV Synthroid. Hyperlipidemia. Hold statin for now. Deep vein thrombosis prophylaxis, sequential compression devices. Admission and Anticipated Discharge Date Admission Date: February 19, 2020 Subjective Patient is feeling better, he is ambulating without any difficulty. Denies any abdominal pain. He continues to pass gas and has no nausea or vomiting. He also had several small bowel movements. He is tolerating clear liquid diet and therefore was advanced this morning. He was also seen by surgery this morning recommended to advance his diet. Discussed with patient's nurse lung systems coordinator, Laura, to continue Solu-Medrol for his rejection, 650 mg IV daily. She recommends that patient gets this dose for 3 days. He got 1 dose yesterday as was discussed with occupational health professional. Review of Systems Review of Systems: All systems reviewed & are unremarkable except as noted in HPI & below Constitutional: no fever and no chills Respiratory: no cough and no dyspnea Cardiovascular: no chest pain and no palpitations Gastrointestinal: no abdominal pain, no nausea, no vomiting and no constipation Physical Exam Physical Exam: GENERAL: Pleasant elderly male of moderate build, not in acute distress, ambulating in hallways HEENT: No pallor, no icterus. Pupils equal, round, and reactive to light. NECK: No JVD. No neck masses. CARDIOVASCULAR: S1, S2 heard, regular rate and rhythm, no murmur, no gallop. RESPIRATORY SYSTEM: Normal AP diameter. No accessory muscle use. CTAB. No wheezing, no crackles. ABDOMEN: Soft, bowel sounds present. No distention, no guarding, no rigidity. NEURO/PSYCH: Alert and oriented x3, speech fluent, no facial asymmetry, answers questions appropriately, moves all extremities spontaneously EXTREMITIES: No edema, no erythema SKIN: Warm, dry, well-perfused Results & Data Results & Data ([facility]) Vital Signs (Past 12 Hours) Vital Signs Temp Pulse Resp BP Pulse Ox 02/20/20 07:40 36.6 C 88 16 117/75 94 02/19/20 23:51 36.5 C 87 14 112/74 97 Laboratory Results 02/20/20 02/20/20 02/20/20 Range/Units 12:12 10:22 10:22 WBC 10.12 (4.8-10.8) K/uL RBC 4.62 L (4.7-6.1) M/uL Hgb 13.0 L (14.0-18.0) g/dL Hct 39.6 L (42-52) % MCV 85.7 (80-100) fL MCH 28.1 (25-34) pg MCHC 32.8 (32-36) g/dL RDW Std Deviation 44.0 (36.4-46.3) fL RDW Coeff of Astrid 14.3 (11.5-14.5) % Plt Count 217 (130-400) K/uL MPV 9.0 (7.4-10.4) fL Sodium 144 (136-145) mmol/L Potassium 4.2 (3.5-5.1) mmol/L Chloride 114 H (98-107) mmol/L Carbon Dioxide 23 (21-32) mmol/L Anion Gap 7.0 (3-11) BUN 25 H (7-18) mg/dl Creatinine 1.52 H (0.6-1.4) mg/dl Est Cr Clr Drug Dosing 53.1 ml/min Est GFR ( Amer) 55.3 Est GFR (Non-Af Amer) 47.7 BUN/Creatinine Ratio 16.4 (10-20) Glucose 180 H (70-99) mg/dl POC Glucose 150 H (70-99) mg/dl Calcium 9.0 (8.5-10.1) mg/dl Phosphorus 2.7 (2.5-4.9) mg/dl Magnesium 1.7 L (1.8-2.4) mg/dl 02/20/20 02/19/20 Range/Units 08:12 22:08 WBC (4.8-10.8) K/uL RBC (4.7-6.1) M/uL Hgb (14.0-18.0) g/dL Hct (42-52) % MCV (80-100) fL MCH (25-34) pg MCHC (32-36) g/dL RDW Std Deviation (36.4-46.3) fL RDW Coeff of Astrid (11.5-14.5) % Plt Count (130-400) K/uL MPV (7.4-10.4) fL Sodium (136-145) mmol/L Potassium (3.5-5.1) mmol/L Chloride (98-107) mmol/L Carbon Dioxide (21-32) mmol/L Anion Gap (3-11) BUN (7-18) mg/dl Creatinine (0.6-1.4) mg/dl Est Cr Clr Drug Dosing ml/min Est GFR ( Amer) Est GFR (Non-Af Amer) BUN/Creatinine Ratio (10-20) Glucose (70-99) mg/dl POC Glucose 159 H 100 H (70-99) mg/dl Calcium (8.5-10.1) mg/dl Phosphorus (2.5-4.9) mg/dl Magnesium (1.8-2.4) mg/dl Medications Administered Current Inpatient Medications Acetaminophen (Tylenol) 650 mg PO Q4H PRN PRN Reason: pain/fever Stop: 03/20/20 03:12 Dextrose (Dextrose 50%) 25 - 50 ml IV UD PRN; Protocol PRN Reason: Hypoglycemia Protocol Stop: 03/20/20 20:34 Glucagon (Glucagen) 1 mg SQ UD PRN; Protocol PRN Reason: Hypoglycemia Protocol Stop: 03/20/20 20:34 Glucose (Dex4 Glucose) 4 - 8 tabs PO UD PRN; Protocol PRN Reason: Hypoglycemia Protocol Stop: 03/20/20 20:34 Glucose (Glucose 40%) 15 - 30 gm PO UD PRN; Protocol PRN Reason: Hypoglycemia Protocol Stop: 03/20/20 20:34 Levothyroxine Sodium 62.5 mcg/ (Syringe) 3.125 mls @ 2 mls/min IV DAILY@0900 [facility] Stop: 03/20/20 08:59 Last Admin: 02/20/20 08:20 Dose: Not Given Documented by: Methylprednisolone 650 mg/ (Dextrose) 260.4 mls @ 260.4 mls/hr IV Q24H [facility] Stop: 02/22/20 20:59 Last Admin: 02/19/20 23:54 Dose: Not Given Documented by: Insulin Aspart (Novolog Flexpen) 0 units SC ACHS [facility] Stop: 03/20/20 20:59 Last Admin: 02/20/20 08:21 Dose: Not Given Documented by: Insulin Glargine (Lantus Solostar Pen) 10 units SC HS [facility] Stop: 03/20/20 20:59 Last Admin: 02/19/20 23:51 Dose: Not Given Documented by: Miscellaneous (Order Awaiting Action) 1 ea N/A QS [facility] Stop: 03/20/20 07:59 Last Admin: 02/20/20 08:19 Dose: Not Given Documented by: Miscellaneous (Carbohydrates For Hypoglycemia) 15 - 30 gm PO UD PRN PRN Reason: Hypoglycemia Protocol Stop: 03/20/20 20:34 Morphine Sulfate (Morphine Sulfate) 2 mg IV Q3H PRN PRN Reason: Pain Stop: 03/04/20 03:12 Mycophenolate Mofetil (Cellcept) 250 mg PO BID@0800,2000 [facility] Stop: 03/20/20 07:59 Last Admin: 02/20/20 08:17 Dose: 250 mg Documented by: Ondansetron HCl (Zofran) 4 mg IV Q6H PRN PRN Reason: Nausea Stop: 03/20/20 03:12 Pantoprazole Sodium (Protonix) 40 mg PO DAILY@0800 [facility] Stop: 03/20/20 07:59 Last Admin: 02/20/20 08:18 Dose: 40 mg Documented by: Prednisone (Prednisone) 5 mg PO DAILY@0800 [facility] Stop: 03/20/20 07:59 Last Admin: 02/19/20 08:26 Dose: 5 mg Documented by: Tacrolimus (Prograf) 0.5 mg PO BID@08,1999 [facility] Stop: 03/20/20 07:59 Last Admin: 02/20/20 08:20 Dose: 0.5 mg Documented by: Trimethoprim/Sulfamethoxazole (Septra Ds 800/160mg Tab) 1 tab PO MoWeFr@0800 [facility] Stop: 03/20/20 07:59 Last Admin: 02/19/20 08:26 Dose: 1 tab Documented by:
[2020-02-20 10:39] LABS: Hematocrit (blood only) 39.6 % (42-52); Mean Corpuscular Hemoglobin 28.1 pg (25-34); Mean Corpuscular Hgb Conc 32.8 g/dL (32-36); Mean Corpuscular Volume 85.7 fL (80-100); Platelet Count 217 K/uL (130-400); RDW Coefficient of Variation 14.3 % (11.5-14.5); Red Blood Count 4.62 M/uL (4.7-6.1); White Blood Count 10.12 K/uL (4.8-10.8)
[2020-02-20 10:57] LABS: BUN Creatinine Ratio 16.4 (10-20); Creatinine Clr Calc Pharmacy 53.1 ml/min; Est GFR (African American) 55.3; Est GFR (Non-African American) 47.7; Magnesium 1.7 mg/dl (1.8-2.4); Phosphorus 2.7 mg/dl (2.5-4.9); Potassium 4.2 mmol/L (3.5-5.1)
[2020-02-20] MEDS ORDERED: DEXTROSE 5% IV STA (14:26)
[2020-02-20] MEDS ORDERED: METHYLPREDNISOLONE IV STA (14:26)
--- NOTE | 2020-02-20 14:55 | Discharge Summary ---
Date of Service February 20, 2020 Admission HPI Per Admitting Provider This is a 64-year-old male with past medical history significant for interstitial lung disease, status post bilateral lung transplant one and a half years ago at the [facility], history of chronic kidney disease stage III with creatinine mostly around 1.7 as per patient, history of hyperlipidemia, hypothyroidism. He is from [facility]. He went to the [facility] for his followup appointment, says he did not go there since COVID shutdown .Followup PFTs, his PFTs are trending down and on CAT scan which showed blood supply to his left lung was 30%, 65% to the right lung, and he was advised to stay overnight and he got another CAT scan with contrast to look at his kidneys and also to look at his blood supply to the lungs.. The results of second ct scan are not back. He also had bronchoscopy . At this time, because of COVID, full anesthesia was given for his bronchoscopy, a lung biopsy was done and was discharged at 5:30 as per patient. He was not feeling well, but he tried to drive back to [place]. After [address], he was feeling nauseous and he got significant abdominal pain. He stopped in the rest area. He had few dry belching. Not feeling good, so he called EMS and was brought in here. Here his labs are all okay. His creatinine is 1.6, afebrile, hemodynamically stable. His CT scan preliminary report shows ileus. The patient says when he had the lung transplant, he was in the ICU and he had significant ileus at that time. Currently he is feeling better. He is passing gas. Abdominal pain is improving. Before the procedure at the [facility] yesterday, COVID test was done and it was negative. Denies any cough. Currently has some headache that is getting better. No blurred vision, no earache, no runny nose, no sore throat, no difficulty swallowing, no chest pain. He gets short of breath on exertion, but usually his oxygen sats are good. Normal bladder movements. No swelling in the legs, no rash. Admission Exam Per Admitting Provider GENERAL: The patient is of moderate build, not in acute distress. VITAL SIGNS: Temperature 36.4, pulse 93, respiratory rate 20, blood pressure 97/65, oxygen 93% on room air. HEENT: No pallor, no icterus. Pupils equal, round, and reactive to light. NECK: No JVD. No neck masses. CARDIOVASCULAR: S1, S2 heard, regular rate and rhythm, no murmur, no gallop. RESPIRATORY SYSTEM: Normal AP diameter. No accessory muscle use. No wheezing, no crackles. ABDOMEN: Soft, bowel sounds present. No distention, no guarding, no rigidity. CENTRAL NERVOUS SYSTEM: Cranial nerves II-XII grossly intact. Nonfocal. EXTREMITIES: No edema, no erythema. Principal Diagnosis Abdominal pain due to mild ileus Discharge Exam GENERAL: Pleasant elderly male of moderate build, not in acute distress, ambulating in hallways HEENT: No pallor, no icterus. Pupils equal, round, and reactive to light. NECK: No JVD. No neck masses. CARDIOVASCULAR: S1, S2 heard, regular rate and rhythm, no murmur, no gallop. RESPIRATORY SYSTEM: Normal AP diameter. No accessory muscle use. CTAB. No wheezing, no crackles. ABDOMEN: Soft, bowel sounds present. No distention, no guarding, no rigidity. NEURO/PSYCH: Alert and oriented x3, speech fluent, no facial asymmetry, answers questions appropriately, moves all extremities spontaneously EXTREMITIES: No edema, no erythema SKIN: Warm, dry, well-perfused Discharge Data Allergies Allergy/AdvReac Type Severity Reaction Status Date / Time gluten Allergy Severe Gastrointestinal Verified 02/19/20 00:04 Upset heparin Allergy Severe Tachycardia Verified 02/19/20 00:04 Consultations 02/19/20 03:13 Consult Case Management - Discharge Planning Routine 02/19/20 08:00 Consult General Surgery Routine Ordered Studies 02/18/20 23:53 CT abd pelvis wo con Urgent IMPRESSION: 1. Lower lumbar pulmonary atelectasis/scarring 2. No evidence of bowel obstruction. No evidence of free air 3. Scattered small bowel air-fluid levels. This a nonspecific finding which could indicate an ileus or enteritis. 4. Fat-containing left inguinal hernia 5. No evidence of acute diverticulitis. No evidence of acute appendicitis. Hospital Course (1) Adynamic ileus: This is a 64-year-old male who presents with abdominal pain and nausea and CAT scan is showing ileus. 1. Ileus, mostly post procedure. He had a bronchoscopy at [facility], 2 days ago. He had a similar episode after the lung transplant surgery. Currently he is improved. He is passing gas and having bowel movements. He is tolerating diet. Initially kept him n.p.o. IV fluids, IV antiemetics, IV pain meds Consulted surgery for further recommendations. No issues, patient is tolerating diet, okay to advance per surgery. 2. History of interstitial lung disease, status post bilateral lung transplant. Follow up with [facility]. Continue his tacrolimus, prednisone, and mycophenolate. 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 Fonseca's note for details. ) Per their recommendation, patient received IV Solu-Medrol last night and today (02/19/20). They recommend that he receives IV Solu-Medrol also tomorrow and then they plan steroid taper. Mild hypomagnesemia. Likely due to n.p.o. status. Will replace today. If any further issues, patient should have his magnesium level checked with his primary care doctor. Creatinine mildly elevated, not sure about his baseline creatinine. Patient should follow-up with primary care doctor. Hypothyroidism, we will place on IV Synthroid. Hyperlipidemia. Hold statin for now. Deep vein thrombosis prophylaxis, sequential compression devices. Total Time Total Time Spent Total Time Spent (In Minutes): 35 Total Time Includes: Examination of the Patient, Discharge Planning, Medication Reconciliation and Communication With Other Providers Discharge Plan Discharge Items Patient Disposition: Home - Self-Care Reason For Visit: abdominal pain Discharge Diagnosis: Abdominal pain due to mild ileus Activity: Per Instructions section Non-emergency contact: Primary Care Provider and Specialist Call non-emergency contact if: you have any medication questions and your symptoms worsen Follow-up/Referrals: PCP,NO [Primary Care Provider] - Diet: Low Fiber Addtl Attending Provider Instructions: Continue to follow-up with your lung transplant team. You will need 1 more IV dose of Solu-Medrol (steroid) tomorrow and then your transplant team plans to prescribe a steroid taper for you. Do not take prednisone while on Solu-Medrol. Also recommend to follow-up with primary care doctor within 1 week. Recommend to get blood work done, BMP and magnesium level checked with your primary care doctor. Recommend low fiber diet for next couple of days. Pending Studies at Discharge: No Stand-Alone Forms: My [employer], Smoking Cessation Medications and DC Order Prescriptions: Continued multivitamin [Daily-Fallon] Tablet 1 tab PO DAILY RF: 0 valganciclovir 450 mg tablet 450 mg PO QAM RF: 0 atorvastatin 10 mg tablet 10 mg PO HS RF: 0 prednisone 5 mg tablet 5 mg PO QAM RF: 0 mycophenolate mofetil 250 mg capsule 250 mg PO BID RF: 0 magnesium oxide 400 mg (241.3 mg magnesium) tablet 400 mg PO BID RF: 0 pantoprazole 40 mg tablet,delayed release (DR/EC) 40 mg PO DAILY RF: 0 levothyroxine 125 mcg tablet 125 mcg PO QAM RF: 0 tacrolimus 0.5 mg capsule 0.5 mg PO AMHS RF: 0 calcium carbonate 500 mg calcium (1,250 mg) Capsule 500 mg PO BID RF: 0 sulfamethoxazole-trimethoprim 800-160 mg tablet 1 tab PO 3XWK RF: 0 folic acid 1 mg Tablet 1 mg PO DAILY RF: 0 Lactobacillus acidophilus Tablet,Chewable 1 tab PO BID RF: 0 Discharge Orders: Discharge Order (Routine); Ordered 02/20/20 Ordered By: Ozzie Malloy Admission Data Admit Date/Time: 02/19/20 02:37 Attending Provider: Ozzie Malloy Admit Provider: Brennan Blanton Primary Care Provider: PCP,NO Other Providers: Jairon Bennett ; Yuly North ; Kuldeep Louis ; Brook Vitale ; Everette Tarango ; Charlie Obrien ; Naima Nolasco ; Agustín King ; Padmini Munson ; Francisco Montana Jr ; Latoya Larios ; Rosibel Eckert
[2020-02-20] MEDS ORDERED: MAGNESIUM OXIDE 400 MG TAB PO ONE (15:15)
[2020-02-20] MEDS ORDERED: TACROLIMUS 1 MG CAP PO SCH (20:00)
--- NOTE | 2020-02-27 10:49 | Coding Query ---
CODING QUERY To promote full compliance with coding requirements relating to patient care, provider participation is requested in all cases of carding doubler uncertainty. Please assist us with the question(s) below: Coding Question: Nayana, can you please clarify for me whether the Ileus was a post-op complication or not? The documentation is a bit here and there, example : "adynamic ileus" is documented but also stated "Ileus, mostly post procedure", these code out differently. Thank you so much for your helo! Have a great day! ( x) Adynamic Ileus, POA ( ) Post-op Ileus, POA ( ) Other, explain Thank you! Macie Bright Principal Diagnosis: "that condition established after study, to be chiefly responsible for occasioning the admission of the patient to the hospital for care." Co-Existing Principal Diagnosis: "when two or more diagnoses equally meet the criteria for principal diagnosis as determined by the circumstances of admission, diagnostic work up, and/or therapy provided, and the Alphabetic Index, Tabular List, or another coding guideline does not provide sequencing direction, any one of the diagnoses may be sequenced first." "When the physician has documented what appears to be a current diagnosis in the body of the record, but has not included the diagnosis in the final diagnostic statement, the physician should be asked whether the diagnosis should be added." (Source Coding [facility] 2 QTR90. p3-4) [place]
== END 2020-02-20 17:03 | disposition home or self-care (01) | DRG 389 ==
LOC: ED 22:56 → 3W 02-19 02:37